=== PATIENT | male | born 1950 | race Caucasian/White ===

== ENCOUNTER 2017-08-25 11:17 | Emergency (ER) | payer OTHER ==
[~2017-08-25] VITALS: Ht 162.6 cm; Wt 73.0 kg
[2017-08-25] MEDS ORDERED: OMEP40CA34 PO (11:31)
[2017-08-25] MEDS ORDERED: ASPI-1159 PO (11:31)
[2017-08-25] MEDS ORDERED: HYDR10SY11 PO (11:31)
[2017-08-25] MEDS ORDERED: ENAL10TA PO (11:31)
[2017-08-25] MEDS ORDERED: HYDR25TA PO (11:31)
[2017-08-25] MEDS ORDERED: ATOR10TA69 PO (11:31)
[2017-08-25] MEDS ORDERED: TAMS0.4C31 PO (11:31)
[2017-08-25 13:30] VITALS: BP 140/99
== END 2017-08-25 16:16 | disposition home or self-care (01) ==
LOC: ER 11:17
DX: B35.4 Tinea corporis (principal); B36.0 Pityriasis versicolor; B35.2 Tinea manuum
CPT/HCPCS: 99283

== ENCOUNTER 2019-02-20 22:09 | Emergency (ER) | payer OTHER ==
[~2019-02-20] VITALS: Ht 162.6 cm; Wt 73.0 kg
[~2019-02-20 22:09] MED LIST: ASPI-1159 PO; ATOR10TA69 PO; ENAL10TA PO; HYDR10SY11 PO; HYDR25TA PO; OMEP40CA34 PO; TAMS0.4C31 PO
[2019-02-21 00:11] LABS: BASOPHILS % 0.5 % (0.0-2.0); EOSINOPHILS % 0.9 % (0.0-5.0); HEMATOCRIT. 38.7 % (42.0-52.0); LYMPHOCYTES % 21.4 % (20.0-50.0); MEAN CORPUSCULAR HEMOGLOBIN 31.6 pg (28.0-32.0); MEAN CORPUSCULAR VOLUME 94.2 fL (80.0-94.0); MEAN PLATELET VOLUME 8.1 fl (7.4-10.4); MONOCYTES % 9.7 % (2.0-8.0); NEUTROPHILS % 67.5 % (40.0-76.0); PLATELET 271 x1000/uL (130-400); RED BLOOD CELL COUNT 4.11 mill/uL (4.7-6.1); RED CELL DISTRIBUTION WIDTH 15.3 % (11.6-14.6)
[2019-02-21 00:16] LABS: CHLORIDE 106 mEq/L (98-107)
[2019-02-21 02:42] VITALS: BP 129/81
== END 2019-02-21 02:44 | disposition home or self-care (01) ==
LOC: ER 22:09
DX: K62.5 Hemorrhage of anus and rectum (principal); E78.00 Pure hypercholesterolemia, unspecified; R73.03 Prediabetes; I10 Essential (primary) hypertension; Z98.890 Other specified postprocedural states
CPT/HCPCS: 36415; 99283